=== PATIENT | female | born 1970 | race American Indian/Alaskan Native ===

== ENCOUNTER 2016-08-29 10:15 | Outpatient (CLI) | payer BC ==
--- NOTE | 2016-08-30 13:25 | Mammography Report ---
BILATERAL DIGITAL SCREENING MAMMOGRAM with CAD: 08/29/16 10:15:00 CLINICAL: Routine screening.History of benign left biopsies. COMPARISON:08/24/15 FINDINGS: The breasts are heterogeneously dense, which may obscure small masses. Right upper outer calcifications require additional imaging.No mass or architectural distortion.The left breast is negative with stable periareolar benign scar. IMPRESSION: Right calcifications requiring further workup. BI-RADS CATEGORY: 0 -- Additional Imaging Evaluation Required RECOMMENDATION: Recall for right spot magnification views. ACR BI-RADS MAMMOGRAPHIC CODES: 0 = Needs additional imaging evaluation; 1 = Negative; 2 = Benign; 3 = Probably benign; 4 = Suspicious; 5 = Malignant; 6 = Known biopsy-proven malignancy COMMENT: 1. Dense breast tissue, i.e., adenosis, fibrocystic changes, etc., may obscure an underlying neoplasm. 2. Approximately 10% of cancers are not detected with mammography. 3. A negative mammography report should not delay biopsy if a clinically suspicious mass is present. COMMENT: Patient follow-up letters are generated via our [employer] application.
== END 2016-08-29 10:16 | disposition home or self-care (01) ==
LOC: SPVIMAG 10:15
PROVIDERS: ATTEND Surgery
DX: Z12.31 Encounter for screening mammogram for malignant neoplasm of breast (principal)
CPT/HCPCS: 77067; G0202

== ENCOUNTER 2018-04-09 09:30 | Outpatient (CLI) | payer BC ==
--- NOTE | 2018-04-09 10:14 | Mammography Report ---
Right mammogram: Short-term followup for right asymmetry and calcifications. Comparison is made to prior exams dating back to 2016. No significant asymmetry is appreciated as noted on prior exams in 2017. The calcifications appear generally stable compared to prior exams dating back to 2016. There are no overtly suspicious characteristics. Impression: Stable examination. Recommendation: Resume normal screening followup. BI-RADS CATEGORY: 2 = Benign ACR BI-RADS MAMMOGRAPHIC CODES: 0 = Needs additional imaging evaluation; 1 = Negative; 2 = Benign; 3 = Probably benign; 4 = Suspicious; 5 = Malignant; 6 = Known biopsy-proven malignancy COMMENT: 1. Dense breast tissue, i.e., adenosis, fibrocystic changes, etc., may obscure an underlying neoplasm. 2. Approximately 10% of cancers are not detected with mammography. 3. A negative mammography report should not delay biopsy if a clinically suspicious mass is present.
== END 2018-04-09 09:31 | disposition home or self-care (01) ==
LOC: SPVWC 09:30
PROVIDERS: ATTEND Surgery
DX: R92.2 Inconclusive mammogram (principal); Z80.3 Family history of malignant neoplasm of breast

== ENCOUNTER 2018-09-10 11:49 | Outpatient (CLI) | payer BC ==
--- NOTE | 2018-09-10 13:54 | Mammography Report ---
BILATERAL DIGITAL SCREENING MAMMOGRAM with CAD: 09/10/18 11:49:00 CLINICAL: Routine screening. COMPARISON:09/04/17 FINDINGS: The breasts are heterogeneously dense, which may obscure small masses. Right asymmetries on both views require additional imaging.No architectural distortion or suspicious calcifications.The left breast is negative with an outer biopsy clip. IMPRESSION: Right asymmetries requiring further workup. BI-RADS CATEGORY: 0 -- Additional Imaging Evaluation Required RECOMMENDATION: Recall for right mediolateral and spot magnification ML and CC views and right breast ultrasound if needed. ACR BI-RADS MAMMOGRAPHIC CODES: 0 = Needs additional imaging evaluation; 1 = Negative; 2 = Benign; 3 = Probably benign; 4 = Suspicious; 5 = Malignant; 6 = Known biopsy-proven malignancy COMMENT: 1. Dense breast tissue, i.e., adenosis, fibrocystic changes, etc., may obscure an underlying neoplasm. 2. Approximately 10% of cancers are not detected with mammography. 3. A negative mammography report should not delay biopsy if a clinically suspicious mass is present. COMMENT: Patient follow-up letters are generated via our [employer] application.
== END 2018-09-10 11:50 | disposition home or self-care (01) ==
LOC: SPVWC 11:49
PROVIDERS: ATTEND Surgery
DX: Z12.31 Encounter for screening mammogram for malignant neoplasm of breast (principal)
CPT/HCPCS: 77067

== ENCOUNTER 2018-09-17 11:56 | Outpatient (CLI) | payer BC ==
--- NOTE | 2018-09-17 12:17 | Mammography Report ---
RIGHT DIGITAL DIAGNOSTIC MAMMOGRAM : 09/17/18 11:56:00 CLINICAL: Recalled for asymmetries. COMPARISON:09/10/18 screening FINDINGS: ML and spot magnification MLO and cc views were performed. Satisfactory effacement asymmetries. Scattered benign calcifications with no suspicious forms. IMPRESSION: No mammographic evidence of malignancy. BI-RADS CATEGORY: 2 - - Benign RECOMMENDATION: Routine mammographic screening in one year. ACR BI-RADS MAMMOGRAPHIC CODES: 0 = Needs additional imaging evaluation; 1 = Negative; 2 = Benign; 3 = Probably benign; 4 = Suspicious; 5 = Malignant; 6 = Known biopsy-proven malignancy COMMENT: 1. Dense breast tissue, i.e., adenosis, fibrocystic changes, etc., may obscure an underlying neoplasm. 2. Approximately 10% of cancers are not detected with mammography. 3. A negative mammography report should not delay biopsy if a clinically suspicious mass is present. COMMENT: Patient follow-up letters are generated via our [employer] application.
== END 2018-09-17 11:57 | disposition home or self-care (01) ==
LOC: SPVWC 11:56
PROVIDERS: ATTEND Surgery
DX: R92.8 Other abnormal and inconclusive findings on diagnostic imaging of breast (principal)